=== PATIENT | female | born 1980 | race Two or more races ===

== ENCOUNTER 2019-10-17 06:27 | Emergency (ER) | payer SELFPAY ==
[~2019-10-17] VITALS: Ht 152.4 cm; Wt 69.8 kg
--- NOTE | 2019-10-17 06:56 | NUR ---
REPORT TO KRISTIE VENEGAS
--- NOTE | 2019-10-17 06:57 | NUR ---
REPORT RECEIVED FROM BERNARD FLOWERS.
[2019-10-17] MEDS ORDERED: ONDANSETRON 2MG/ML, 2ML IVPush ONE (07:00)
[2019-10-17] MEDS ORDERED: ONDANSETRON 2MG/ML, 2ML ONE (07:01)
[2019-10-17] MEDS ORDERED: MORPHINE SULFATE 4 MG/ML, 1ML ONE ×2 (07:01→08:28)
[2019-10-17] MEDS: MORPHINE SULFATE 4 MG/ML, 1ML IVPush PRN ×2 (07:04→08:30)
--- NOTE | 2019-10-17 07:08 | NUR ---
pt medicated per emar. pt tolerated well. pt's aox4. resps even and unlabored.
--- NOTE | 2019-10-17 07:22 | NUR ---
pt's pain level is 5/10 at this time. pt states "i feel much better." pt's aox4. resps even and unlabored.
[2019-10-17 07:24] LABS: BASOPHILS # (AUTO) 0.03 x10^3/uL (0-0.1); BASOPHILS % (AUTO) 0 % (0-1); EOSINOPHILS # (AUTO) 0.29 x10^3/uL (0-0.4); EOSINOPHILS % (AUTO) 2 % (1-7); LYMPHOCYTES # (AUTO) 3.43 x10^3/uL (1-3.4); LYMPHOCYTES % (AUTO) 27 % (22-44); MD NO; MEAN CORPUSCULAR HEMOGLOBIN 32.3 pg (27.0-34.8); MEAN CORPUSCULAR HGB CONC 33.5 g/dL (32.4-35.8); MEAN CORPUSCULAR VOLUME 96.3 fL (80-100); MEAN PLATELET VOLUME 9.7 fL (7.4-10.4); MONOCYTES # (AUTO) 0.63 x10^3/uL (0.2-0.8); MONOCYTES % (AUTO) 5 % (2-9); NEUTROPHILS # (AUTO) 8.58 x10^3/uL (1.8-6.8); NEUTROPHILS % (AUTO) 66 % (42-75); PLATELET COUNT 239 x10^3/uL (130-400); RED BLOOD COUNT 4.21 x10^6/uL (3.82-5.3); RED CELL DISTRIBUTION WIDTH 13.1 % (9.6-15.2)
[2019-10-17 07:33] LABS: ALBUMIN 3.4 g/dL (3.4-5.0); ANION GAP 10 mmol/L (5-15); CALCIUM 9.1 mg/dL (8.5-10.1); CHLORIDE 107 mmol/L (98-107)
--- NOTE | 2019-10-17 07:39 | NUR ---
pt to us at this time.
--- NOTE | 2019-10-17 08:13 | NUR ---
pt back to room from us.
--- NOTE | 2019-10-17 08:18 | NUR ---
pt's aox4. resps even and unlabored. pt's at bedside at this time.
[2019-10-17] MEDS ORDERED: KETOROLAC 30 MG/1 ML ONE (08:28)
[2019-10-17] MEDS ORDERED: KETOROLAC 30 MG/1 ML IVPush ONE (08:30)
--- NOTE | 2019-10-17 08:33 | NUR ---
PT'S PAIN LEVEL IS 9/10 AT THIS TIME. PT REQUESTING PAIN MEDS. EDMD NOTIFIED.
--- NOTE | 2019-10-17 08:33 | NUR ---
PT MEDICATED PER EMAR FOR PAIN. PT TOLERATED WELL.
--- NOTE | 2019-10-17 09:11 | NUR ---
report given to silke fagan.
--- NOTE | 2019-10-17 09:13 | NUR ---
Report from Shantell
--- NOTE | 2019-10-17 09:25 | NUR ---
PT RESTING. REPORTS PAIN 3/10.VS STABLE
--- NOTE | 2019-10-17 09:45 | NUR ---
PT SOAKED PAD AND SHEET W BLEEDING. PT TRANSFERRED TO [facility]. READY FOR EXAM
[2019-10-17 10:30] VITALS: BP 96/78
--- NOTE | 2019-10-17 10:30 | NUR ---
MD AT BEDSIDE FOR GRAPHIC COORDINATOR EXAM. RN AT BEDSIDE. PT TOLERATED PROCEDURE.
--- NOTE | 2019-10-17 11:33 | NUR ---
PT GIVEN WARM CLOTHS TO CLEAN UP AND GET READY FOR DC.
--- NOTE | 2019-10-17 11:57 | NUR ---
Patient/Caregiver given discharge instructions and they have confirmed that they understand the instructions. Patient ambulatory with steady gait.
== END 2019-10-17 11:59 | disposition home or self-care (01) ==
LOC: ED 08:24
DX: O03.9 Complete or unspecified spontaneous abortion without complication (principal)
CPT/HCPCS: 36415; 76801; 80048; 82040; 84702; 85025; 86901; 96374; 96375; 96376; 99284; J1885; J2270; J2405